=== PATIENT | female | born 1960 | race Caucasian/White ===

== ENCOUNTER 2023-08-16 14:54 | Emergency (ER) | payer OTHER ==
[~2023-08-16] VITALS: Ht 160 cm; Wt 87.5 kg
[2023-08-16] MEDS: IV NORMAL SALINE 1000 ML BAG IV ONE (15:27)
[2023-08-16] MEDS ORDERED: CELE-85 PO (15:50)
[2023-08-16] MEDS ORDERED: CYCL30DR EACHEYE (15:50)
[2023-08-16] MEDS ORDERED: CHLO25TA2 PO (15:50)
[2023-08-16 15:54] LABS: BASOPHILS % (AUTO) 0.4 % (0.0-2.0); EOSINOPHILS % (AUTO) 0.3 % (0.0-7.0); HEMATOCRIT 42.8 % (31.2-41.9); LYMPHOCYTES # (AUTO) 1.4 K/uL (0.8-4.8); LYMPHOCYTES % (AUTO) 18.1 % (20.5-51.5); MEAN CORPUSCULAR HEMOGLOBIN 31.3 uug (24.7-32.8); MEAN CORPUSCULAR HGB CONC 35 g/dL (32.3-35.6); MEAN CORPUSCULAR VOLUME 89.3 fL (75.5-95.3); MONOCYTES # (AUTO) 0.3 K/uL (0.1-1.30); MONOCYTES % (AUTO) 4.1 % (0.0-11.0); NEUTROPHILS % (AUTO) 77.1 % (38.5-71.5); PLATELET COUNT (AUTO) 288 K/uL (179-408); RED BLOOD CELL COUNT(AUTO) 4.79 MIL/uL (3.63-4.92); RED CELL DISTRIBUTION WIDTH 13.9 % (12.3-17.7); WHITE BLOOD COUNT (AUTO) 7.8 K/uL (3.8-11.8)
[2023-08-16 15:57] LABS: DIFFERENTIAL COMMENT 1
[2023-08-16 16:11] LABS: CALCIUM 8.5 mg/dL (8.5-10.1); CARBON DIOXIDE 26 mmol/L (21-32); CHLORIDE 96 mmol/L (98-107); CREATININE 0.7 mg/dL (0.6-1.3); GLUCOSE 90 mg/dL (74-106); POTASSIUM 2.9 mmol/L (3.5-5.1); SODIUM SERUM 140 mmol/L (136-145); UREA NITROGEN, BLOOD 15 mg/dL (7-18)
[2023-08-16 16:14] LABS: ALANINE AMINOTRANSFERASE 40 U/L (14-59); ALBUMIN 4.2 g/dL (3.4-5.0); ALKALINE PHOSPHATASE 92 U/L (50-136); ASPARTATE AMINOTRANSFERASE 23 U/L (15-37); BILIRUBIN,DIRECT 0.1 mg/dL (0.0-0.2); BILIRUBIN,TOTAL 0.7 mg/dL (0.2-1.0); TOTAL PROTEIN, SERUM 8.2 g/dL (6.4-8.2)
[2023-08-16 16:16] LABS: ACETAMINOPHEN < 2.0 ug/mL (10-30)
[2023-08-16 16:30] LABS: ETHANOL > 300 MG/DL (0-10)
[2023-08-16 16:55] VITALS: O2SAT 97
[2023-08-16] MEDS ORDERED: MAGNESIUM SULFATE/D5W 100 ML IV ONE (17:30)
[2023-08-16] MEDS ORDERED: POTASSIUM CHLORIDE 20 MEQ TAB.PRT.SR PO ONE (17:30)
[2023-08-17 02:04] LABS: *BILIRUBIN,URIN NEGATIVE (NEGATIVE); *BLOOD, URINE 1+ (NEGATIVE); *CLARITY,URINE CLEAR (CLEAR); *COLOR,URINE YELLOW (YELLOW); *KETONES,URINE TRACE (NEGATIVE); *PROTEIN,URINE NEGATIVE (NEGATIVE); *UROBILINOGEN,URINE 0.2 E.U./dl (NORMAL); LEUKOCYTE ESTERASE ,URINE NEGATIVE (NEGATIVE); NITRITE, URINE NEGATIVE (NEGATIVE); UGLUCOSE NEGATIVE (NEGATIVE)
[2023-08-17 02:08] LABS: BACTERIA,URINE NONE SEEN /HPF (NONE SEEN); SQUAMOUS EPITHELIAL CELL,UR FEW /HPF (NONE SEEN); WBC,URINE 0-3 /HPF (0-3)
[2023-08-17 02:16] LABS: *AMPHETAMINE, URINE NEGATIVE (NEGATIVE); *BARBITURATE, URINE NEGATIVE (NEGATIVE); *BENZODIAZEPINE, URINE NEGATIVE (NEGATIVE); *CANNABINOID, URINE NEGATIVE (NEGATIVE); *COCCAINE, URINE NEGATIVE (NEGATIVE); *OPIATE, URINE NEGATIVE (NEGATIVE); *PHENCYCLIDINE SCREEN,URINE NEGATIVE (NEGATIVE); FENTANYL, URINE NEGATIVE (NEGATIVE)
== END 2023-08-16 17:20 | disposition left against medical advice (07) ==
LOC: ER 14:54
DX: F10.129 Alcohol abuse with intoxication, unspecified (principal); Z79.899 Other long term (current) drug therapy; Z88.0 Allergy status to penicillin; Z88.1 Allergy status to other antibiotic agents; Y90.0 Blood alcohol level of less than 20 mg/100 ml
CPT/HCPCS: 80076; 80048; 85025; 36415; 93005; 99284; 96360; 80299; 80320; 80307; J7040; G0480

== ENCOUNTER 2023-08-16 18:59 | Emergency (ER) | payer OTHER ==
[~2023-08-16] VITALS: Ht 162.6 cm; Wt 72.6 kg
[~2023-08-16 18:59] MED LIST: CELE-85 PO; CHLO25TA2 PO; CYCL30DR EACHEYE
[2023-08-16 20:25] LABS: BASOPHILS % (AUTO) 0.2 % (0.0-2.0); EOSINOPHILS % (AUTO) 0.4 % (0.0-7.0); HEMATOCRIT 39.2 % (31.2-41.9); HEMOGLOBIN 13.5 g/dL (10.9-14.3); LYMPHOCYTES # (AUTO) 1.2 K/uL (0.8-4.8); LYMPHOCYTES % (AUTO) 18.3 % (20.5-51.5); MEAN CORPUSCULAR HEMOGLOBIN 30.6 uug (24.7-32.8); MEAN CORPUSCULAR HGB CONC 34 g/dL (32.3-35.6); MONOCYTES # (AUTO) 0.5 K/uL (0.1-1.30); NEUTROPHILS # (AUTO) 4.8 K/uL (1.8-8.9); NEUTROPHILS % (AUTO) 74.1 % (38.5-71.5); PLATELET COUNT (AUTO) 245 K/uL (179-408); WHITE BLOOD COUNT (AUTO) 6.5 K/uL (3.8-11.8)
[2023-08-16 20:30] LABS: DIFFERENTIAL COMMENT 1
[2023-08-16 20:35] LABS: CALCIUM 8.3 mg/dL (8.5-10.1); CARBON DIOXIDE 23 mmol/L (21-32); CHLORIDE 96 mmol/L (98-107); CREATININE 0.7 mg/dL (0.6-1.3); GLUCOSE 93 mg/dL (74-106); SODIUM SERUM 138 mmol/L (136-145); UREA NITROGEN, BLOOD 13 mg/dL (7-18)
[2023-08-16 20:41] LABS: ACETAMINOPHEN < 2.0 ug/mL (10-30); ALANINE AMINOTRANSFERASE 33 U/L (14-59); ALBUMIN 3.8 g/dL (3.4-5.0); ALKALINE PHOSPHATASE 82 U/L (50-136); ASPARTATE AMINOTRANSFERASE 23 U/L (15-37); BILIRUBIN,DIRECT 0.1 mg/dL (0.0-0.2); BILIRUBIN,TOTAL 0.7 mg/dL (0.2-1.0); TOTAL PROTEIN, SERUM 7.3 g/dL (6.4-8.2)
[2023-08-16] MEDS ORDERED: diphenhydrAMINE 50 MG/1 ML VIAL ONE (20:44)
[2023-08-16 20:45] LABS: ETHANOL 279 MG/DL (0-10)
[2023-08-16] MEDS ORDERED: HALOPERIDOL LACTATE 5 MG/1 ML VIAL ONE (20:45)
[2023-08-16] MEDS ORDERED: LORAZEPAM 2 MG/1 ML VIAL ONE (20:46)
[2023-08-16] MEDS: LORAZEPAM 2 MG/1 ML VIAL IM ONE (21:20)
[2023-08-16] MEDS: diphenhydrAMINE 50 MG/1 ML VIAL IM ONE (21:20)
[2023-08-16] MEDS: HALOPERIDOL LACTATE 5 MG/1 ML VIAL IM ONE (21:20)
[2023-08-17 06:38] VITALS: O2SAT 97
[2023-08-17] MEDS ORDERED: POTASSIUM CHLORIDE 20 MEQ TAB.PRT.SR ONE (17:04)
[2023-08-17] MEDS: POTASSIUM CHLORIDE 20 MEQ TAB.PRT.SR PO ONE (17:05)
== END 2023-08-17 21:07 | disposition short-term general hospital (02) ==
LOC: ER 19:01
DX: F10.129 Alcohol abuse with intoxication, unspecified (principal); Z79.899 Other long term (current) drug therapy; Z20.822 Contact with and (suspected) exposure to COVID-19; Z88.0 Allergy status to penicillin; Z88.1 Allergy status to other antibiotic agents
CPT/HCPCS: 80076; 80048; 85025; 36415 ×2; 99285; 96372 ×2; 80299; 80320 ×2; 84132; 87426; J1200; J1630; J2060; A4606; A4663; G0480